=== PATIENT | male | born 1995 | race Caucasian/White ===

== ENCOUNTER 2018-03-06 11:38 | Emergency (ER) | payer MEDICAID, OTHER ==
[~2018-03-06] VITALS: Ht 170.2 cm; Wt 95.1 kg
[2018-03-06 11:46] VITALS: BP 166/98
[2018-03-06] MEDS ORDERED: LIDOCAINE-MPF 1%, 2ML ONE ×2 (12:10→12:12)
[2018-03-06] MEDS ORDERED: DIPH,PERTUSS(ACELL),TET VAC/PF 0.5 ML IM-VACC ONE ×2 (12:10→12:30)
[2018-03-06] MEDS ORDERED: LIDOCAINE-MPF 1%, 5ML INFIL ONE (12:30)
[2018-03-06] MEDS ORDERED: BACITRACIN ZINC OINT 500U/GM, 0.9 GM ONE (13:14)
== END 2018-03-06 13:34 | disposition home or self-care (01) ==
LOC: ED 13:27
DX: S81.822A Laceration with foreign body, left lower leg, initial encounter (principal); X58.XXXA Exposure to other specified factors, initial encounter; Y93.89 Activity, other specified; Y92.89 Other specified places as the place of occurrence of the external cause; Y99.8 Other external cause status
CPT/HCPCS: 12034; 90471; 90715

== ENCOUNTER 2018-03-06 18:15 | Emergency (ER) | payer OTHER ==
[~2018-03-06] VITALS: Ht 170.2 cm; Wt 95.0 kg
[2018-03-06] MEDS ORDERED: LIDOCAINE 2%-EPI 1:100K, 20ML INFIL ONE (19:30)
[2018-03-06 21:33] VITALS: BP 128/72
== END 2018-03-06 21:37 | disposition home or self-care (01) ==
LOC: ED 21:30
DX: S81.811A Laceration without foreign body, right lower leg, initial encounter (principal); X58.XXXA Exposure to other specified factors, initial encounter; Y93.89 Activity, other specified; Y92.89 Other specified places as the place of occurrence of the external cause; Y99.8 Other external cause status
CPT/HCPCS: 13121; 13122; 99285